=== PATIENT | female | born 1950 | race Caucasian/White ===

== ENCOUNTER 2016-11-28 11:03 | Emergency (ER) | payer MEDICARE, BC ==
--- NOTE | ~2016-11-28 | ER ---
PATIENT'S NAME: ARI JETER [facility] AGE: 66 Y [address] ROOM: [place] [address] LOCATION: ED ADMIT DATE: 11/28/2016 ER/Outpatient Report DISCHARGE DATE: 11/28/2016 FAMILY PHYSICIAN: Tai Martinez MD ATTENDING PHYSICIAN: Elmira Brown TIME OF ARRIVAL: 1103 hours. TIME SEEN: 1120 hours. IDENTIFICATION: A 66-year-old female. CHIEF COMPLAINT: Diarrhea. HISTORY OF PRESENT ILLNESS: The patient had diarrhea yesterday, but none since last night. She had four loose stools yesterday. This morning, she was lightheaded when she got up, her blood pressure at home was 72/56, after shower. She was feeling better, got in the car to come from [place] where they live for her radiation therapy, when she had a syncopal episode in the car. It was brief duration. She and her daughter were uncertain how long she was out. She is feeling better at this time. She has no lightheadedness now. She has no chest pain. No cough. No shortness of breath. No other symptoms. She said this has happened before when she has been dehydrated. ALLERGIES: TO ADHESIVES, PENICILLIN, AND SULFA. CURRENT MEDICATIONS: 1. Vitamin D3 2000 international units b.i.d. 2. Levothyroxine 50 mcg daily. 3. Prilosec 40 mg daily. 4. Xanax 0.25 mg p.r.n. 5. Norvasc 5 mg daily. 6. Carvedilol 25 mg b.i.d. MEDICAL PROBLEMS: Stage IIIA lung cancer diagnosed in August, currently on chemotherapy one time per week of carboplatin/paclitaxel and radiation therapy 4 days per week, hypertension, hypothyroidism. [facility] 66 Y [address] ROOM: [place] [address] LOCATION: ED ADMIT DATE: 11/28/2016 ER/Outpatient Report DISCHARGE DATE: 11/28/2016 FAMILY PHYSICIAN: Tai Martinez MD ATTENDING PHYSICIAN: Elmira Brown PRIOR SURGERIES: Hemicolectomy, total knee arthroplasty. SOCIAL HISTORY: The patient lives in [place]. She is retired. Tobacco use, denies. Alcohol use, denies. Drug use, denies. REVIEW OF SYSTEMS: All systems reviewed and negative other than what is noted in the HPI. FAMILY HISTORY: Father with premature coronary artery disease in his 30s. PHYSICAL EXAMINATION: VITAL SIGNS: Weight 97.7 kg. Blood pressure 116/72, pulse 58, respirations 18, temp 97, and saturations 95%. She has no orthostatic hypotension. Blood pressure lying 127/76, pulse 64; standing 123/76, pulse 76. GENERAL: A 66-year-old female, in no acute distress. HEENT: Head is normocephalic and atraumatic. Eyes, pupils equal and reactive to light and accommodation. Extraocular movements intact. Nose, mucosa pink. No lesions or drainage. Mouth, no lesions. Pharynx benign. NECK: Supple. No lymphadenopathy. LUNGS: Clear to auscultation. HEART: Regular rate and rhythm. ABDOMEN: Soft, nondistended, nontender. SKIN: [place], warm, and dry. No lesions or rashes noted. NEURO: The patient is alert and oriented x4. Cranial nerves 2 through 12 grossly intact. Motor strength 5/5 throughout. Sensation is intact to light touch. No lower extremity edema. No calf tenderness. The patient has a port in her right upper chest. No surrounding erythema. No drainage. DIAGNOSTIC DATA: Procalcitonin less than 0.05, sodium 140, potassium 3.7, chloride 107, CO2 of 25, BUN 19, creatinine 0.8, blood sugar 108. Liver enzymes normal. Magnesium 2.3. CPK 30. CK-MB 0.5. Troponin I less than 0.040. Hemoglobin 11.9, hematocrit 34.9, platelets 152, white count 2.2 with 74% segs, 4% bands, absolute neutrophil count 1700. EKG normal sinus rhythm at 64 beats per minute. No acute ST elevation or depression. No prior EKG available at this time for comparison. Lactate 1.3. Chest x-ray, 3.6 cm mass present at the right lung base. Right Port-A-Cath present. The patient was given 1 L of IV fluids. She felt much better, was no longer lightheaded. IMPRESSION: 1. Syncope. 2. Mild dehydration. PATIENT'S NAME: ARI JETER [facility] AGE: 66 Y [address] ROOM: [place] [address] LOCATION: [facility] ADMIT DATE: 11/28/2016 ER/Outpatient Report DISCHARGE DATE: 11/28/2016 FAMILY PHYSICIAN: Tai Martinez MD ATTENDING PHYSICIAN: Elmira Brown 3. Lung cancer. PLAN: Fluids and rest. Follow up today radiation therapy as scheduled and follow up with Dr. Huertas in 1 day. Follow up sooner if any problems or concerns. The patient and her daughter understand and agree, and all questions have been answered. ELMIRA BROWN MD CAR/modl /[id number] d: 11/28/16 1536 t: 11/29/16 1735, OUTPATIENT REPORT
[2016-11-28 12:00] LABS: HEMATOCRIT 34.9 % (33.0-46.0); HEMOGLOBIN 11.9 g/dL (10.0-15.0); MCH 31.8 pg (27.0-34.0); MCHC 34.1 gm/dL (32.0-36.5); MCV 93.3 fl (83.0-98.0); MPV 10.2 fl (9.4-12.4); PLATELET COUNT 152 K/uL (150-450); RBC 3.74 M/uL (3.50-5.50); RDW-CV 14.5 % (11.9-14.6); WBC 2.2 K/uL (4.0-11.0)
[2016-11-28 12:10] LABS: INR - (THERAPEUTIC) 0.91 (0.92-1.07); PROTIME 9.5 SECONDS (9.8-11.4); PTT 22 SECONDS (25-32)
[2016-11-28 12:26] LABS: ALBUMIN 3.2 gm/dL (3.5-5.0); ALK PHOS 73 IU/L (33-138); ALT 30 IU/L (12-78); ANION GAP 11.7 (10.0-19.0); AST 18 IU/L (10-40); BLOOD UREA NITROGEN 19 mg/dL (6-24); CALCIUM 8.4 mg/dL (8.5-10.5); CHLORIDE 107 mMol/L (96-110); CO2 25 mMol/L (22-32); CPK 30 IU/L (21-215); CREATININE 0.8 mg/dL (0.5-1.1); MAGNESIUM 2.3 mg/dL (1.8-2.6); POTASSIUM 3.7 mMol/L (3.7-5.1); SODIUM 140 mMol/L (135-145); TOTAL BILIRUBIN 1.2 mg/dL (0.0-1.5); TOTAL PROTEIN 6.1 g/dL (6.0-8.4)
[2016-11-28 12:42] LABS: ABSOLUTE NEUTROPHIL CT (ANC) 1.7 K/uL (1.8-7.8); BANDED NEUTROPHIL # 0.1 K/uL (0.0-0.1); BANDED NEUTROPHILS % 4 %; LYMPHOCYTE # 0.4 K/uL (0.8-4.0); LYMPHOCYTE % 16 %; MONOCYTE # 0.1 K/uL (0.0-1.0); SEGMENTED NEUTROPHIL # 1.6 K/uL (1.8-7.8); SEGMENTED NEUTROPHIL % 74 %
[2017-01-06] MEDS ORDERED: OMEPRAZOLE40 MG PO (15:17)
[2017-01-06] MEDS ORDERED: LEVOTHROID (SY50 MCG PO (15:17)
[2017-01-06] MEDS ORDERED: TYLENOL EXTRA500 MG PO (15:18)
[2017-01-06] MEDS ORDERED: XANAX0.25 MG PO (15:18)
[2017-01-06] MEDS ORDERED: CPAP INH (15:19)
[2017-01-06] MEDS ORDERED: REFRESH PLUS1 EACH OPHTH (15:21)
[2017-01-09] MEDS ORDERED: ZOFRAN4 MG PO (10:23)
== END 2016-11-28 13:44 | disposition disaster alternative care site (69) ==
LOC: GMED 11:03
PROVIDERS: Family Medicine
DX: R55 Syncope and collapse (principal); E86.0 Dehydration; C34.90 Malignant neoplasm of unspecified part of unspecified bronchus or lung; I10 Essential (primary) hypertension; E03.9 Hypothyroidism, unspecified; Z79.899 Other long term (current) drug therapy; Z88.0 Allergy status to penicillin; Z88.2 Allergy status to sulfonamides; Z91.048 Other nonmedicinal substance allergy status
CPT/HCPCS: J7030

== ENCOUNTER → 2016-11-29 | Outpatient (CLI) | payer MEDICARE, BC ==
[~2016-11-29] MED LIST: CPAP INH; LEVOTHROID (SY50 MCG PO; OMEPRAZOLE40 MG PO; REFRESH PLUS1 EACH OPHTH; TYLENOL EXTRA500 MG PO; XANAX0.25 MG PO; ZOFRAN4 MG PO
== END | disposition disaster alternative care site (69) ==
LOC: GRAD 11-27 13:00
DX: C34.90 Malignant neoplasm of unspecified part of unspecified bronchus or lung (principal); E27.8 Other specified disorders of adrenal gland
CPT/HCPCS: Q9967

== ENCOUNTER → 2016-12-04 | Outpatient (CLI) | payer MEDICARE, BC | END | disposition disaster alternative care site (69) | LOC: GKIC 09:55 | DX: C34.31 Malignant neoplasm of lower lobe, right bronchus or lung (principal); R93.3 Abnormal findings on diagnostic imaging of other parts of digestive tract | CPT/HCPCS: A9552 ==